=== PATIENT | male | born 1940 | race Caucasian/White ===

== ENCOUNTER → 2023-12-26 | Outpatient (CLI) | payer MEDICARE, MEDICAID, SELFPAY ==
[2023-12-29 10:09] LABS: Anti-Nuclear Antibody Test Positive (.); Anti-dsDNA Ab <1 IU/mL (0-9); RNP Ab 0.2 AI (0.0-0.9); Smith Ab <0.2 AI (0.0-0.9)
== END | disposition home or self-care (01) ==
LOC: MTLAB 14:55
PROVIDERS: PCP Internal Medicine; Referring Provider Physician Assistant; Visit Provider Physician Assistant
DX: L30.8 Other specified dermatitis (principal); M12.9 Arthropathy, unspecified; D64.9 Anemia, unspecified; Z13.0 Encounter for screening for diseases of the blood and blood-forming organs and certain disorders involving the immune mechanism
CPT/HCPCS: 36415; 86038; 86225; 86235